=== PATIENT | female | born 1950 | race Caucasian/White ===

== ENCOUNTER 2017-12-12 06:20 | Observation (INO) | payer OTHER, MEDICARE ==
[~2017-12-12] VITALS: Ht 160 cm; Wt 67.5 kg
[2017-12-12 07:01] LABS: BASOPHIL (%) 0.9 % (0-1); BASOPHIL COUNT 0.1 K/uL (0-0.1); EOSINOPHIL (%) 9.3 % (0-5); EOSINOPHIL COUNT 0.6 K/uL (0-0.3); HEMATOCRIT 43.5 % (36.0-46.0); HEMOGLOBIN 14.8 G/DL (11.9-15.5); IMMATURE GRANULOCYTE (%) 0.5 % (0.0-0.7); LYMPHOCYTE COUNT 2.1 K/uL (1.0-2.8); MCH 30.8 PG (29.0-34.0); MCV 90.6 FL (83-99); MONOCYTE (%) 9.3 % (3-12); MONOCYTE COUNT 0.6 K/uL (0-0.8); NEUTROPHIL COUNT 3.1 K/uL (1.8-6.4); PLATELET COUNT 268 K/uL (156-360); RBC DIS.WIDTH-CV 13.1 % (11.8-14.6); RBC DIS.WIDTH-SD 43.4 % (39-53); WHITE BLOOD COUNT 6.5 K/uL (4.1-10.2)
[2017-12-12 07:09] LABS: PTT 28.9 SEC (25-37)
[2017-12-12 07:46] LABS: TROP-I INTERPRETATION NEGATIVE; TROPONIN-I 0.01 ng/mL (0.0-0.30)
[2017-12-12 07:47] LABS: ALBUMIN 4.4 G/DL (3.2-4.8); ALKALINE PHOSPHATASE 61 IU/L (3-129); ALT (GPT) 21 IU/L (3-49); AST (GOT) 32 IU/L (2-34); CHLORIDE 103 MEQ/L (99-109); GFR ESTIMATE (CALCULATED) 58 mL/min/; GLUCOSE 126 mg/dL (70-99); POTASSIUM 4.6 MEQ/L (3.7-5.4); SODIUM 140 MEQ/L (136-147); TOTAL BILIRUBIN 0.6 MG/DL (0.0-1.0); TOTAL PROTEIN 6.9 G/DL (6.4-8.3); UREA NITROGEN (BUN) 16 mg/dL (9-23)
[2017-12-12 09:58] LABS: TROP-I INTERPRETATION NEGATIVE; TROPONIN-I 0.05 ng/mL (0.0-0.30)
[2017-12-12] MEDS ORDERED: MOBIC15 MG PO (12:32)
[2017-12-12] MEDS ORDERED: CRESTOR10 MG PO (12:32)
[2017-12-12] MEDS ORDERED: ADVAIR 250/501 DISK IH (12:33)
[2017-12-12] MEDS ORDERED: ZOLOFT50 MG PO (12:34)
[2017-12-12] MEDS ORDERED: LO-DOSE ASPIRIN81 M1 PO (12:34)
[2017-12-12] MEDS ORDERED: PROAIR HFA8.5 GM IH (12:35)
[2017-12-12] MEDS ORDERED: PRILOSEC20 MG PO (12:36)
[2017-12-12] MEDS ORDERED: ADVIL200 MG PO (12:37)
[2017-12-12] MEDS ORDERED: VISINE DRY EYE15 ML BOTH EYES (12:38)
[2017-12-12 14:54] VITALS: BP 153/85
[2017-12-12 16:17] LABS: TROP-I INTERPRETATION NEGATIVE; TROPONIN-I 0.08 ng/mL (0.0-0.30)
[2017-12-12 20:41] VITALS: BP 125/61
[2017-12-12 22:05] LABS: TROP-I INTERPRETATION NEGATIVE; TROPONIN-I 0.07 ng/mL (0.0-0.30)
[2017-12-12 23:49] VITALS: BP 111/55
[2017-12-13 04:35] VITALS: BP 126/68
[2017-12-13 08:01] VITALS: BP 122/71
[2017-12-13 10:51] VITALS: BP 109/58
[2017-12-13] MEDS ORDERED: LISINOPRIL10 MG PO (13:07)
[2017-12-13 15:39] VITALS: BP 125/71
== END 2017-12-13 18:02 | disposition home or self-care (01) ==
LOC: EME 06:20 → EDOF 10:25 → 5WEST 10:25 → ENRESERV 10:26 → 5WEST 14:20
PROVIDERS: Emergency Medicine; Internal Medicine
DX: R07.9 Chest pain, unspecified (principal); I16.0 Hypertensive urgency; I10 Essential (primary) hypertension; Z82.49 Family history of ischemic heart disease and other diseases of the circulatory system; R06.02 Shortness of breath; E11.9 Type 2 diabetes mellitus without complications; Z85.818 Personal history of malignant neoplasm of other sites of lip, oral cavity, and pharynx; J45.909 Unspecified asthma, uncomplicated; Z83.3 Family history of diabetes mellitus; Z88.0 Allergy status to penicillin; Z88.8 Allergy status to other drugs, medicaments and biological substances; Z91.040 Latex allergy status; Z91.012 Allergy to eggs; Z91.018 Allergy to other foods
CPT/HCPCS: 71045; 80053; 84484; 85025; 85379; 85610; 85730; 93005; 94640; 94640 76; 99202; 99281; 99285; G0378; J1650